=== PATIENT | female | born 1995 | race American Indian/Alaskan Native ===

== ENCOUNTER 2017-06-10 21:01 | Emergency (ER) | payer OTHER ==
[2017-06-10] MEDS ORDERED: TYLENOL PO ONE (21:15)
[2017-06-10] MEDS ORDERED: TYLENOL ONE (21:17)
[2017-06-10 21:51] LABS: Basophils % (Auto) 0.9 % (0.0-1.8); Eosinophils % (Auto) 1.3 % (0.0-4.3); Hematocrit 36.5 % (30.3-42.9); Hemoglobin 12.2 gm/dl (10.1-14.3); Mean Corpuscular HGB Conc 33 % (30-34); Mean Corpuscular Hemoglobin 30 pg (28-32); Mean Corpuscular Volume 89 fl (79-97); Platelet Count 355 K/mm3 (140-440); Red Cell Distribution Width 13.4 % (13.2-15.2); White Blood Count 10.6 K/mm3 (4.5-11.0)
[2017-06-10 22:05] LABS: Alanine Aminotransferase 8 units/L (7-56); Albumin 4.4 g/dL (3.9-5); Albumin/Globulin Ratio 1.2 %; Alkaline Phosphatase 51 units/L (35-129); Anion Gap 20 mmol/L; BUN/Creatinine Ratio 19; Blood Urea Nitrogen 13 mg/dL (7-17); Calcium 9.7 mg/dL (8.4-10.2); Carbon Dioxide 24 mmol/L (22-30); Chloride 95.6 mmol/L (98-107); Glucose 93 mg/dL (65-100); Lipase 16 units/L (13-60); Potassium 3.9 mmol/L (3.6-5.0); Sodium 136 mmol/L (137-145)
[2017-06-10 23:29] LABS: Mucus,Urine FEW /HPF
[2017-06-10 23:30] LABS: Bilirubin,Urine Negative (Negative); Blood,Urine Moderate (Negative); Ketones,Urine Trace mg/dL (Negative)
[2017-06-10 23:31] LABS: Leukocyte Esterase,Urine Large (Negative); Nitrite,Urine Negative (Negative); Protein,Urine <15 mg/dL mg/dL (Negative); Urobilinogen,Urine < 2.0 mg/dL (<2.0)
[2017-06-11 06:30] VITALS: BP 102/66
== END 2017-06-11 06:33 | disposition left against medical advice (07) ==
LOC: ED 21:01
DX: N89.8 Other specified noninflammatory disorders of vagina (principal); Z53.21 Procedure and treatment not carried out due to patient leaving prior to being seen by health care provider
CPT/HCPCS: 36415; 80053; 81001; 83690; 84703; 85025; 87400; 87430